=== PATIENT | male | born 2000 | race Caucasian/White ===

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

== ENCOUNTER 2022-01-05 19:21 | Emergency (ER) | payer BC, OTHER ==
[~2022-01-05] VITALS: Ht 172.7 cm; Wt 57.6 kg
== END 2022-01-05 20:42 | disposition home or self-care (01) ==
LOC: ER 19:33
DX: R50.9 Fever, unspecified (principal); J10.1 Influenza due to other identified influenza virus with other respiratory manifestations; Z20.822 Contact with and (suspected) exposure to COVID-19
CPT/HCPCS: 71045; 99283; U0002